=== PATIENT | female | born 2000 | race African-American/Black ===

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

== ENCOUNTER 2022-05-01 15:51 | Emergency (ER) | payer OTHER ==
[~2022-05-01] VITALS: Ht 157.5 cm; Wt 62.1 kg
[2022-05-01] MEDS ORDERED: KETOROLAC TROMETHAMINE 30 MG/ML VIAL IM ONE (16:15)
[2022-05-01 16:21] LABS: CLARITY,URINE CLEAR (CLEAR); COLOR,URINE YELLOW (YELLOW)
[2022-05-01 16:22] LABS: KETONES,URINE >=160 (NEGATIVE); LEUKOCYTE ESTERASE ,URINE NEGATIVE (NEGATIVE); NITRITE,URINE NEGATIVE (NEGATIVE); PROTEIN,URINE DIPSTICK 1+ (NEGATIVE); URINE UROBILINOGEN 0.2 mg/dL (0.2 - 1)
[2022-05-01 16:26] LABS: BACTERIA,URINE MODERATE /HPF; EPITHELIAL CELLS,URINE MANY /LPF
[2022-05-01 16:27] LABS: MUCUS,URINE FEW (RARE); RBC,URINE 0-5 /HPF (0-5)
[2022-05-01 17:03] VITALS: BP 121/78
== END 2022-05-01 17:02 | disposition home or self-care (01) ==
LOC: ER 15:54
DX: R11.2 Nausea with vomiting, unspecified (principal); J06.9 Acute upper respiratory infection, unspecified; R53.1 Weakness
CPT/HCPCS: 81001; 81025; 87400; 99283; J1885